=== PATIENT | male | born 1980 | race Caucasian/White ===

== ENCOUNTER 2021-03-09 16:27 | Emergency (ER) | payer OTHER, SELFPAY ==
--- NOTE | ~2021-03-09 | XR_ITS ---
EXAMINATION: XR chest 2V EXAM DATE: 03/09/2021 17:05 INDICATION: Cough persistent 8 weeks. TECHNIQUE: Frontal and lateral projections of the chest obtained and reviewed. There is no prior sera dy for comparison. FINDINGS: The lungs are clear. There are no pleural effusions. The cardiomediastinal silhouette is within normal limits. There is no pneumothorax suspected. The bones and soft tissues are unremarkab le. IMPRESSION: No acute cardiopulmonary findings. Reviewed, dictated and finalized at location G. RMAN
[2021-03-09 16:40] VITALS: BP 143/86; PULSE 81; RESP 20; TEMP 36.8; O2SAT 99
--- NOTE | 2021-03-09 16:42 | ED.GENADULT ---
HPI - General Adult General Chief complaint: Upper Respiratory Infection Stated complaint: cough that want go away Time Seen by Provider: 03/09/21 16:42 Source: patient Mode of arrival: ambulatory Limitations: no limitations History of Present Illness HPI narrative: 41-year-old male patient presents to the [facility] with complaints of a cough for the past 8 weeks. Patient states about 10 weeks he had some kind of upper respiratory infection all of his symptoms have resolved except for an ongoing cough. Patient states within the last week the cough has gotten worse he is coughing more at night, it is waking him up from sleep, anytime he tries to take a deep breath he is coughing. Denies any shortness of breath but states that it is starting to feel kind of tight in the chest. Patient is not vaccinated against COVID but states he has tested several times for COVID as always, negative. Patient denies taking anything for his cough [id number] since his symptoms started. Related Data Allergies Allergy/AdvReac Type Severity Reaction Status Date / Time acetaminophen [From Vicodin] Allergy Anxiety Verified 03/09/21 16:56 hydrocodone [From Vicodin] Allergy Anxiety Verified 03/09/21 16:56 azithromycin AdvReac Cough Verified 03/09/21 16:56 Review of Systems Review of Systems: CONSTITUTIONAL: Denies fever, chills, or sweats. EYES: Denies visual changes, redness, or discharge. ENT: Denies rhinorrhea, congestion, sore throat, or otalgia. CARDIOVASCULAR: Denies chest pain, palpitations, or edema. RESPIRATORY: Positive cough, denies dyspnea. GASTROINTESTINAL: Denies abdominal pain, nausea, vomiting, or diarrhea. GENITOURINARY: Denies dysuria or hematuria. SKIN: Denies rash or itching. MUSCULOSKELETAL: Denies back pain, joint pain, or myalgia. NEUROLOGIC: Denies headache, numbness, or weakness. PSYCHIATRIC: Denies anxiety or depression. [facility] Past Medical History Medical History (Updated 03/09/21 @ 17:18 by TEMO Colon) ADHD Mild anxiety Surgical History Surgical History (Updated 03/09/21 @ 16:52 by TEMO Colon) Hx of appendectomy Hx of tonsillectomy Comments At the time of my signature I agree with nursing past medical history, surgical, social, and family history. There is no relevant family history pertinent to the presenting complaint. Exam Narrative: GENERAL: Well-appearing, well-nourished, and in no acute distress. HEAD: Normocephalic, atraumatic. EYES: PERRLA and EOMI. ENT: Nares clear, no rhinorrhea or epistaxis. Mucous membranes moist. Posterior pharynx with no erythema, tonsillar edema, exudates or lesions present. Bilateral TMs are clear with no erythema or foreign bodies to the canal. NECK: Supple. No lymphadenopathy CHEST: Clear to auscultation. No respiratory distress. Patient able to talk in clear complete sentences. There is coughing noted during exam. HEART: Regular rate and rhythm. No murmur heard. Normal peripheral pulses. ABDOMEN: Soft, nontender, nondistended, normal active bowel sounds. EXTREMITIES: Normal range of motion. No edema. SKIN: Warm, dry, no rash. NEURO: No focal deficits. Alert and oriented x3. Course Course Level of Care: Express Care Visit Reevaluation(s) Reevaluation #1: Notify patient that his x-ray came back negative for any pneumonia. Discussed with him I think he most likely has bronchitis brought on by some type of viral syndrome that he had 8 to 10 weeks ago. Discussed with him that bronchitis can last up to 12 weeks. We will go ahead and discharge him home with an albuterol inhaler, oral steroids and Tessalon Perles. Patient verbalized understanding denies any other questions or concerns at this time. Date: 03/09/21 Time: 17:23 Vital Signs Vital signs: Vital Signs Temperature 36.8 C 03/09/21 16:40 Pulse Rate 81 03/09/21 16:40 Respiratory Rate 20 03/09/21 16:40 Blood Pressure 143/86 H 03/09/21 16:40 Pulse Oximetry 99 03/09/21 16:40
[2021-03-10 15:55] LABS: SARS-CoV-2 RNA PCR Negative
== END 2021-03-09 17:25 | disposition home or self-care (01) ==
PROVIDERS: Emergency Provider Nurse Practitioner Family
DX: J20.8 Acute bronchitis due to other specified organisms (principal); Z20.822 Contact with and (suspected) exposure to COVID-19
CPT/HCPCS: 71046; 99213; C9803; G0463; U0003; U0005

== ENCOUNTER 2021-06-25 08:07 | Emergency (ER) | payer OTHER, SELFPAY ==
--- NOTE | ~2021-06-25 | XR_ITS ---
EXAMINATION: XR ribs BI 3V w CXR 2V INDICATION: Left-sided chest pain TECHNIQUE: PA and lateral views of the chest and 3 views of the bilateral ribs were obtained. COMPARISON: 03/09/2021 FINDINGS: The lungs are free of acute opacities. There is no pleural effusion or pneumothorax. The ca rdiomediastinal silhouette is normal. There is a nondisplaced acute fracture at the anterolateral asp ect of the right seventh rib. There is a minimally displaced acute fracture at the anterolateral aspe ct of the left seventh through ninth ribs. IMPRESSION: 1. No acute cardiopulmonary abnormality. 2. Acute fractures of the right seventh and left seventh through ninth ribs. Reviewed, dictated and finalized at location A.
[2021-06-25 08:14] VITALS: BP 123/92; PULSE 90; RESP 20; TEMP 36.4; O2SAT 99
--- NOTE | 2021-06-25 08:21 | ED.BACK ---
HPI - Back Pain/Injury General Chief Complaint: Back Pain/Injury Stated Complaint: Back/Side Injury Time Seen by Provider: 06/25/21 08:15 Source: patient and RN notes reviewed History of Present Illness HPI Narrative: Patient is a 41-year-old male presents to the urgent care with complaints of bilateral side pain into the back. Patient states that 1 week ago he was on a piece of equipment at work that had a safety bar that runs across the center of his abdomen. Patient states he ran into something and jolted forward against the bar. Patient states that since then he has been having difficulty sleeping on his sides, difficulty taking deep breaths, and increased pain with movement. Patient has been taking Tylenol and ibuprofen. Denies of any abdominal pains, nausea, vomiting. No other acute complaints. No acute distress noted. Patient aware of the plan of care. Some parts of this dictation were generated by voice recognition software and may contain typographical and/or grammatical inaccuracies. Related Data Allergies Allergy/AdvReac Type Severity Reaction Status Date / Time acetaminophen [From Vicodin] Allergy Anxiety Verified 06/25/21 08:33 hydrocodone [From Vicodin] Allergy Anxiety Verified 06/25/21 08:33 azithromycin AdvReac Cough Verified 06/25/21 08:33 Review of Systems Review of Systems: CONSTITUTIONAL: Denies fever, chills, or sweats. EYES: Denies visual changes, redness, or discharge. ENT: Denies rhinorrhea, congestion, sore throat, or otalgia. CARDIOVASCULAR: Denies chest pain, palpitations, or edema. RESPIRATORY: Denies cough or dyspnea. GASTROINTESTINAL: Denies abdominal pain, nausea, vomiting, or diarrhea. GENITOURINARY: Denies dysuria or hematuria. SKIN: Denies rash or itching. MUSCULOSKELETAL: Reports of mid to upper back pain wrapping around to the bilateral, lateral chest NEUROLOGIC: Denies headache, numbness, or weakness. All other systems reviewed are negative, except as documented in HPI. [facility] Past Medical History Medical History (Updated 06/25/21 @ 08:53 by TEMO Perez) ADHD Mild anxiety Surgical History Surgical History (Updated 03/09/21 @ 16:52 by TEMO Colon) Hx of appendectomy Hx of tonsillectomy Comments At the time of my signature, I reviewed and agree with the nursing past medical, surgical, social, and family history. There is no relevant family history pertinent to the patient complaint. Exam Narrative: GENERAL: This is a well-nourished, well-developed patient, in no apparent distress. HEAD: normocephalic, atraumatic. EYES: PERRL. Sclera clear/white. Vision is grossly intact. EARS: External ears normal NOSE: External nose normal with no obvious nasal discharge, nares without redness, no rhinorrhea. THROAT: Mucous membranes moist NECK: Neck supple CARDIOVASCULAR: Regular rate and rhythm without murmurs, gallops, or rubs. RESPIRATORY: Bilateral thoracic lateral tenderness without ecchymosis clear to auscultation. Breath sounds equal bilaterally. No wheezes, rales, or rhonchi. SKIN: warm, intact with no suspicious lesions or rash, good texture and turgor. NEURO: awake, alert, and oriented to person, place and time. There were no obvious focal neurologic abnormalities. EXTREMITIES: No clubbing, cyanosis, or edema. BACK: Nontender without deformity or crepitance. Moderate upper thoracic tenderness Course Course Level of Care: Express Care Visit Vital Signs Vital signs: Vital Signs Temperature 97.5 F L 06/25/21 08:14 Pulse Rate 90 06/25/21 08:14 Respiratory Rate 20 06/25/21 08:14 Blood Pressure 123/92 H 06/25/21 08:14 Pulse Oximetry 99 06/25/21 08:14 Temperature 97.5 F L 06/25/21 08:14 Pulse Rate 90 06/25/21 08:14 Respiratory Rate 20 06/25/21 08:14 Blood Pressure 123/92 H 06/25/21 08:14 Pulse Oximetry 99 06/25/21 08:14 Reviewed-patient is informed that they may have pre-hypertension or hypertension based on a blood pressu
== END 2021-06-25 08:55 | disposition home or self-care (01) ==
PROVIDERS: Emergency Provider Nurse Practitioner Family
DX: S22.43XA Multiple fractures of ribs, bilateral, initial encounter for closed fracture (principal); W22.8XXA Striking against or struck by other objects, initial encounter; Y99.0 Civilian activity done for income or pay
CPT/HCPCS: 71046; 71110; 99213; G0463